=== PATIENT | male | born 1955 | race African-American/Black ===

== ENCOUNTER 2023-01-23 23:26 | Emergency (ER) | payer OTHER, MEDICARE ==
[~2023-01-23] VITALS: Ht 177.8 cm; Wt 90.0 kg
[2023-01-24 00:04] VITALS: BP 177/99; PULSE 67; TEMP 98.3
== END 2023-01-24 00:04 | disposition home or self-care (01) ==
LOC: COL.ER 23:26
DX: S61.216A Laceration without foreign body of right little finger without damage to nail, initial encounter (principal); W26.8XXA Contact with other sharp object(s), not elsewhere classified, initial encounter